=== PATIENT | female | born 1970 | race Caucasian/White ===

== ENCOUNTER 2016-11-02 09:07 | Emergency (ER) ==
[2016-11-02 09:12] VITALS: BP 118/81; TEMP 98.9; BMI 45.6
--- NOTE | 2016-11-02 09:38 | ED.PDOC ---
General ED Provider: Dr. SHA CARMEN JR Chief Complaint: Back Pain Stated Complaint: tuesday was doing a lot of sweeping and bending and lifting. tuesday started hurting some and then got worse tuesday. pain radiating down back of right leg [ End ]since tuesday 98.9 128 20 95% 118/81 10 norco neurontin. right lumbar right paraspinouts lumbar pain Time Seen by Physician: 09:33 Mode of Arrival: Walk-In Information Source: Patient Exam Limitations: No limitations Primary Care Provider: GRACY CABRERA Nursing and Triage Documentation Reviewed and Agree: No Review of Systems - Review Of Systems Constitutional: Reports: No symptoms Eyes: Reports: No symptoms Ears, Nose, Mouth, Throat: Reports: No symptoms Respiratory: Reports: No symptoms Cardiac: Reports: No symptoms GI: Reports: No symptoms : Reports: No symptoms Musculoskeletal: Reports: Back pain, Muscle pain Skin: Reports: No symptoms Neurological: Reports: Tingling Endocrine: Reports: No symptoms Hematologic/Lymphatic: Reports: No symptoms All Other Systems: Other Past Medical History - Past Medical History Endocrine: Reports: None Cardiovascular: Reports: None Respiratory: Reports: None Hematological: Reports: None Gastrointestinal: Reports: None Genitourinary: Reports: None Neuro/Psych: Reports: Migraine, Anxiety, Depression Musculoskeletal: Reports: None Cancer: Reports: None Last Menstrual Period: September 2016 Other Pertinent Past Medical History: Obesity, pt is pain management - Surgical History General Surgical History: Reports: Cholecystectomy, Back Surgery, Other ( ablation ). Denies: Hysterectomy (ablation, essure) - Family History Family History: Reports: None - Social History Smoking Status: Never smoker Hx Substance Use: No Alcohol Screening: Occasionally Physical Exam - Physical Exam Appearance: Well-appearing, Obese Pain Distress: Moderate Neck: Supple Respiratory: Airway patent Musculoskeletal: Normal strength, ROM intact, No edema, No calf tenderness ( back tendernesss) Skin: Warm (no lesions), Dry, Normal color Neurological: Sensation intact, Motor intact, Reflexes intact, Cranial nerves intact, Alert, Oriented Psychiatric: Affect appropriate, Mood appropriate Interpretation - Radiology Interpretation Radiology Interpretation By: Radiologist Exam Interpreted: CT Scan (severe l5s1 discease) Critical Care Note - Critical Care Note Total Time (mins): 0 Course - Course Orders, Labs, Meds: Orders Category Date Time Status Ketorolac Tromethamine [Toradol] MEDS 11/02/16 09:47 Discontinued 60 mg IM ONCE STA Orphenadrine Citrate [Norflex] MEDS 11/02/16 09:47 Discontinued 60 mg IM ONCE STA CT LUMBAR SPINE W/O CONTRAST Stat RADS 11/02/16 09:32 Completed Medications Discontinued Medications Generic Name Dose Route Start Last Admin Trade Name Freq PRN Reason Stop Dose Admin Ketorolac Tromethamine 60 mg 11/02/16 09:47 11/02/16 10:03 Toradol IM 11/02/16 09:48 60 mg ONCE STA Administration Orphenadrine Citrate 60 mg 11/02/16 09:47 11/02/16 10:05 Norflex IM 11/02/16 09:48 60 mg ONCE STA Administration Vital Signs: Temp Pulse Resp BP Pulse Ox 11/02/16 09:08 98.9 F 128 H 20 118/81 95 Departure - Departure Time of Disposition: 10:35 Disposition: HOME SELF-CARE Discharge Problem: Disc displacement, lumbar Instructions: Lumbar Disc Herniation (ED) Condition: Fair Pt referred to PMD for follow-up: Yes Additional Instructions: Naprosyn for pain may continue home medication discuss MRI with PMD call PMD today to schedule follow up Prescriptions: Naproxen [Naprosyn] 500 mg PO Q12HR PRN #30 tablet PRN Reason: PAIN Allergies/Adverse Reactions: Allergies sulfamethoxazole [From Bactrim] Adverse Reaction (Verified 11/02/16 09:12) trimethoprim [From Bactrim] Adverse Reaction (Verified 11/02/16 09:12) venom-honey bee [bee venom (honey bee)] Adverse Reaction (Verified 11/02/16 09: 12) Home Medications: Ambulatory Orders Ascorbate Calcium [Vitamin C] 500 mg PO DAILY 11/14/13 B Complex with Vitamin C [Super B Complex with C] 1 cap PO DAILY 11/14/13 Bupropion HCl [Wellbutrin] 200 mg PO BID 11/14/13 Cholecalciferol (Vitamin D3) [Vitamin D] 2,000 unit PO TID 11/14/13 Hydrocodone Bit/Acetaminophen [[place] 7.5-325] 1 tab PO TID 11/14/13 Multivitamin [Multi Vitamin Daily] 1 tab PO DAILY 11/14/13 Citalopram Hydrobromide [Celexa] 20 mg PO BEDTIME #30 06/10/16 Clonazepam [Klonopin] 0.5 mg PO TID #90 06/10/16 Magnesium Oxide [Magnesium] 500 mg PO BID 11/02/16 Naproxen [Naprosyn] 500 mg PO Q12HR PRN #30 tablet 11/02/16
[2016-11-02] MEDS ORDERED: NORFLEX IM STA (09:47)
[2016-11-02] MEDS ORDERED: TORADOL IM STA (09:47)
--- NOTE | 2016-11-02 10:22 | CT ---
EXAM: CT lumbar spine without contrast. HISTORY: Right sciatica. COMPARISON: Radiograph 05/31/2016. TECHNIQUE: Multiple axial images of the lumbar spine were obtained without intravenous contrast. I mages were reformatted in the sagittal and coronal planes. FINDINGS: Curvature and alignment are normal. Vertebral body heights are maintained without fractu re. There is moderate to severe loss of disc height at L4-5. There is mild loss of disc height at L5-S1. Disc heights are otherwise normal. Paravertebral soft tissues without acute abnormality. T12-L1: No neural compromise. Mild facet arthropathy. L1-2: No neural compromise. Mild facet arthropathy. L2-3: No neural compromise. Mild facet arthropathy. L3-4: Broad-based disc bulge and facet arthropathy with mild right and minimal left neural foramina l narrowing. L4-5: Disc osteophyte formation and facet arthropathy with flattening of the ventral thecal sac and moderate neural foraminal narrowing. L5-S1: Disc osteophyte formation and facet arthropathy with severe bilateral neural foraminal narro wing. Incidental note made of left nephrolithiasis. IMPRESSION: Degenerative changes as described, greatest in the lower lumbar spine.
== END 2016-11-02 10:55 | disposition home or self-care (01) ==
LOC: ED 09:07
DX: M51.26 Other intervertebral disc displacement, lumbar region (principal)
CPT/HCPCS: 96372; 99282

== ENCOUNTER 2017-09-19 17:03 | Emergency (ER) ==
[2017-09-19 17:06] VITALS: BP 151/89; TEMP 99.2; BMI 46.6
--- NOTE | 2017-09-19 17:24 | ED.PDOC ---
General ED Provider: Dr. BASIL VÁSQUEZ Chief Complaint: Cough Stated Complaint: cough Time Seen by Physician: 17:00 Mode of Arrival: Walk-In Information Source: Patient Exam Limitations: No limitations Primary Care Provider: GRACY CABRERA Nursing and Triage Documentation Reviewed and Agree: Yes Reviewed sepsis parameters & appropriate labs ordered?: Yes System Inflammatory Response Syndrome: Not Applicable Sepsis Protocol: For patient's 13 years and over: Temp is 96.8 and below OR 101 and greater Pulse >90 BPM Resp >20/minute Acutely Altered Mental Status Are patient's symptoms suggestive of a new infection, such as: -Pneumonia -Skin, Soft Tissue -Endocarditis -UTI -Bone, Joint Infection -Implantable Device -Acute Abdominal Infection -Wound Infection -Meningitis -Blood Stream Catheter Infection -Unknown System Inflammatory Response Syndrome: Not Applicable Respiratory Complaint Exam - Respiratory Complaint/Exam Onset/Duration: 3 days Symptoms Are: Still present Timing: Intermittent Initial Severity: Moderate Current Severity: Mild Location: Nose, Throat, Chest Character: Reports: Non-productive cough Aggravating: Reports: None Alleviating: Reports: Spontaneous resolution Associated Signs and Symptoms: Reports: URI, Nasal congestion Related History: Reports: Similar episode History of Healthcare-Acquired Pneumonia: No Related Surgical History: Reports: None Pulmonary Embolism Risk Factors: None Cardiac Risk Factors: Reports: None Pseudomonas Risk Factors: Reports: None Tuberculosis Risk Factors: Reports: None Status Asthmaticus Risk Factors: Reports: None Home Oxygen Use: No Recent Stress Test: No Recent Echo/LV Function: No Current Antibiotic Use: No Current Asthma Medication Use: No Respiratory Distress: None Inadequate Respiratory Effort: No Dysphagia Present: No Stridor Present: No JVD Present: No Accessory Muscle Use: No Retractions: Not Present Diminished Breath Sounds: No Sinus Tenderness: None Grunting Respirations: No Kussmaul Respirations: No Differential Diagnoses: Pneumonia, Bronchitis Review of Systems - Review Of Systems Constitutional: Reports: No symptoms Eyes: Reports: No symptoms Ears, Nose, Mouth, Throat: Reports: No symptoms Respiratory: Reports: Cough Cardiac: Reports: No symptoms GI: Reports: No symptoms : Reports: No symptoms Musculoskeletal: Reports: No symptoms Skin: Reports: No symptoms Neurological: Reports: No symptoms Endocrine: Reports: No symptoms Hematologic/Lymphatic: Reports: No symptoms All Other Systems: Reviewed and Negative Past Medical History - Past Medical History Endocrine: Reports: None Cardiovascular: Reports: None Respiratory: Reports: None Hematological: Reports: None Gastrointestinal: Reports: None Genitourinary: Reports: None Neuro/Psych: Reports: Migraine, Anxiety, Depression Musculoskeletal: Reports: None Cancer: Reports: None Last Menstrual Period: NONE Other Pertinent Past Medical History: Obesity, pt is pain management - Surgical History General Surgical History: Reports: Cholecystectomy, Back Surgery, Other ( ablation ). Denies: Hysterectomy (ablation, essure) - Family History Family History: Reports: None - Social History Smoking Status: Never smoker Hx Substance Use: No Alcohol Screening: Occasionally Physical Exam - Physical Exam Appearance: Well-appearing, No pain distress, Well-nourished Eyes: GOGO, EOMI, Conjunctiva clear ENT: Ears normal, Nose normal, Oropharynx normal Respiratory: Airway patent, Breath sounds clear, Breath sounds equal, Respirations nonlabored Cardiovascular: RRR, Pulses normal, No rub, No murmur GI/: Soft, Nontender, No masses, Bowel sounds normal, No Organomegaly Musculoskeletal: Normal strength, ROM intact, No edema, No calf tenderness Skin: Warm, Dry, Normal color Neurological: Sensation intact, Motor intact, Reflexes intact, Cranial nerves intact, Alert, Oriented Psychiatric: Affect appropriate, Mood appropriate Interpretation - Radiology Interpretation Radiology Results: Negative Exam Interpreted: CXR Critical Care Note - Critical Care Note Total Time (mins): 0 Course - Course Orders, Labs, Meds: Orders Category Date Time Status CHEST, 2 VIEWS PA & LAT Stat RADS 09/19/17 17:13 Ordered Vital Signs: Temp Pulse Resp BP Pulse Ox 09/19/17 17:03 99.2 F 109 H 20 151/89 H 97 Departure - Departure Time of Disposition: 18:00 Disposition: HOME SELF-CARE Discharge Problem: Cough, Bronchitis Instructions: Bronchospasm (ED), Acute Bronchitis (ED) Condition: Good Pt referred to PMD for follow-up: Yes IPMP verified?: No Additional Instructions: Please call your Family Physician as soon as possible to schedule a follow-up appointment. Allergies/Adverse Reactions: Allergies sulfamethoxazole [From Bactrim] Adverse Reaction (Verified 09/19/17 17:07) trimethoprim [From Bactrim] Adverse Reaction (Verified 09/19/17 17:07) venom-honey bee [bee venom (honey bee)] Adverse Reaction (Verified 09/19/17 17: 07) Home Medications: Ambulatory Orders Ascorbate Calcium [Vitamin C] 500 mg PO DAILY 05/21/14 B Complex with Vitamin C [Super B Complex with C] 1 cap PO DAILY 11/14/13 Bupropion HCl [Wellbutrin] 200 mg PO BID 11/14/13 Cholecalciferol (Vitamin D3) [Vitamin D] 2,000 unit PO TID 11/14/13 Hydrocodone Bit/Acetaminophen [[place] 7.5-325] 1 tab PO TID 11/14/13 Multivitamin [Multi Vitamin Daily] 1 tab PO DAILY 11/14/13 Citalopram Hydrobromide [Celexa] 20 mg PO BEDTIME #30 06/10/16 Clonazepam [Klonopin] 0.5 mg PO TID #90 06/10/16 Magnesium Oxide [Magnesium] 500 mg PO BID 11/02/16 Naproxen [Naprosyn] 500 mg PO Q12HR PRN #30 tablet 11/02/16 Disposition Discussed With: Patient
[2017-09-19] MEDS ORDERED: DECADRON 4 MG/ML SDV IM STA (17:25)
--- NOTE | 2017-09-19 18:43 | DI ---
EXAM: PA and lateral views of the chest HISTORY: Cough COMPARISON: None FINDINGS: Lungs are clear with no lobar consolidation, failure, large effusion or significant atelec tasis. There is old granulomatous disease. Cardiac and mediastinal silhouettes show no acute abnormal ity. No acute osseous or soft tissue abnormalities. IMPRESSION: No active disease.
== END 2017-09-19 17:52 | disposition home or self-care (01) ==
LOC: ED 17:03
DX: J20.9 Acute bronchitis, unspecified (principal)
CPT/HCPCS: 96372; 99283

== ENCOUNTER 2018-04-14 16:51 | Emergency (ER) | payer OTHER ==
[2018-04-14 17:01] VITALS: BP 140/80; TEMP 99; BMI 47.6
--- NOTE | 2018-04-14 18:01 | DI ---
EXAM: Three views of the right hand. HISTORY: Pain. FINDINGS: The bones are intact with no evidence of fracture. The joint spaces are maintained. No so ft tissue abnormality. Impression: Negative right hand.
--- NOTE | 2018-04-14 18:03 | DI ---
EXAM: Three views of the right wrist. HISTORY: Pain. FINDINGS: The bones are intact with no evidence of fracture. The joint spaces are maintained. No so ft tissue abnormality. Impression: Negative right wrist.
--- NOTE | 2018-04-14 18:26 | ED.PDOC ---
General ED Provider: Dr. BASIL VÁSQUEZ Chief Complaint: Wrist Pain/Injury Stated Complaint: WRIST AND AHND PAIN RIGHT SIDED NO INJURY Time Seen by Physician: 17:00 (DENIED INJURY SEEN WITH BRENDAN AT ALL TIMES ) Mode of Arrival: Walk-In Information Source: Patient Exam Limitations: No limitations Primary Care Provider: GRACY CABRERA Nursing and Triage Documentation Reviewed and Agree: Yes Does patient meet sepsis criteria?: No System Inflammatory Response Syndrome: Not Applicable Sepsis Protocol: For patient's 13 years and over: Temp is 96.8 and below OR 101 and greater Pulse >90 BPM Resp >20/minute Acutely Altered Mental Status Are patient's symptoms suggestive of a new infection, such as: -Pneumonia -Skin, Soft Tissue -Endocarditis -UTI -Bone, Joint Infection -Implantable Device -Acute Abdominal Infection -Wound Infection -Meningitis -Blood Stream Catheter Infection -Unknown Musculoskeletal Complaint Exam - Hand/Wrist Complaint/Exam Location of Pain: Reports: Right Mechanism of Injury: Reports: No known trauma Onset/Duration: 1 WEEK Symptoms Are: Still present Onset of Pain: Reports: Seconds Initial Severity: Moderate Current Severity: Mild Location: Reports: Discrete Character: Reports: Aching Alleviating: Reports: Rest Aggravating: Reports: None Associated Signs and Symptoms: Denies: Swelling, Redness, Bruising, Fever, Weakness, Numbness, Tingling Related History: Reports: Similar episode Dominant Hand: Right Related Surgical History: Reports: None Hand/Wrist Findings: Absent: Swelling, Ecchymosis, Abnormal contour, Rotation, Ligamentous instability, Tinel's Sign, Phalen's Sign, Laceration Tenderness: Present: Ulna, Snuff box Compartment Syndrome Risk Factors: Present: Pain Differential Diagnoses: Closed Fracture Review of Systems - Review Of Systems Constitutional: Reports: No symptoms Eyes: Reports: No symptoms Ears, Nose, Mouth, Throat: Reports: No symptoms Respiratory: Reports: No symptoms Cardiac: Reports: No symptoms GI: Reports: No symptoms : Reports: No symptoms Musculoskeletal: Reports: No symptoms Skin: Reports: No symptoms Neurological: Reports: No symptoms Endocrine: Reports: No symptoms Hematologic/Lymphatic: Reports: No symptoms All Other Systems: Reviewed and Negative Past Medical History - Past Medical History Endocrine: Reports: None Cardiovascular: Reports: None Respiratory: Reports: None Hematological: Reports: None Gastrointestinal: Reports: None Genitourinary: Reports: None Neuro/Psych: Reports: Migraine, Anxiety, Depression Musculoskeletal: Reports: None Cancer: Reports: None Last Menstrual Period: hysterectomy Other Pertinent Past Medical History: Obesity, pt is pain management - Surgical History General Surgical History: Reports: Cholecystectomy, Back Surgery, Other ( ablation ). Denies: Hysterectomy (ablation, essure) - Family History Family History: Reports: None - Social History Smoking Status: Never smoker Hx Substance Use: No Alcohol Screening: Occasionally Physical Exam - Physical Exam Appearance: Well-appearing, No pain distress, Well-nourished Eyes: GOGO, EOMI, Conjunctiva clear ENT: Ears normal, Nose normal, Oropharynx normal Respiratory: Airway patent, Breath sounds clear, Breath sounds equal, Respirations nonlabored Cardiovascular: RRR, Pulses normal, No rub, No murmur GI/: Soft, Nontender, No masses, Bowel sounds normal, No Organomegaly Musculoskeletal: Normal strength, ROM intact, No edema, No calf tenderness Skin: Warm, Dry, Normal color Neurological: Sensation intact, Motor intact, Reflexes intact, Cranial nerves intact, Alert, Oriented Psychiatric: Affect appropriate, Mood appropriate Interpretation - Radiology Interpretation Radiology Interpretation By: Radiologist Radiology Results: No acute changes Critical Care Note - Critical Care Note Total Time (mins): 0 Course - Course Orders, Labs, Meds: Orders Category Date Time Status HAND, RIGHT 3 VIEWS Stat RADS 04/14/18 17:38 Completed WRIST, RIGHT 3 VIEWS Stat RADS 04/14/18 17:38 Completed Vital Signs: Temp Pulse Resp BP Pulse Ox 04/14/18 16:51 99.0 F 106 H 20 140/80 97 Departure - Departure Time of Disposition: 18:26 (PLACED ON THUMB SPICA SPLINT AND TOLD HER TO HAVE FILMS REDONE ) Disposition: HOME SELF-CARE Discharge Problem: Wrist pain, right Instructions: Arthralgia (ED) Condition: Good Pt referred to PMD for follow-up: Yes IPMP verified?: No Additional Instructions: Please call your Family Physician as soon as possible to schedule a follow-up appointment.THE SAME FILMS MUST BE REDONE IN 1 WEEK DISCUSSED Allergies/Adverse Reactions: Allergies sulfamethoxazole [From Bactrim] Adverse Reaction (Verified 09/19/17 17:07) trimethoprim [From Bactrim] Adverse Reaction (Verified 09/19/17 17:07) venom-honey bee [bee venom (honey bee)] Adverse Reaction (Verified 09/19/17 17: 07) Home Medications: Ambulatory Orders B Complex with Vitamin C [Super B Complex with C] 1 cap PO DAILY 11/14/13 Bupropion HCl [Wellbutrin] 200 mg PO BID 11/14/13 Cholecalciferol (Vitamin D3) [Vitamin D] 2,000 unit PO TID 11/14/13 Hydrocodone Bit/Acetaminophen [[place] 7.5-325] 1 tab PO TID 11/14/13 Multivitamin [Multi Vitamin Daily] 1 tab PO DAILY 11/14/13 Citalopram Hydrobromide [Celexa] 20 mg PO BEDTIME #30 06/10/16 Clonazepam [Klonopin] 0.5 mg PO TID #90 06/10/16 Magnesium Oxide [Magnesium] 500 mg PO BID 11/02/16 Naproxen [Naprosyn] 500 mg PO Q12HR PRN #30 tablet 11/02/16 Disposition Discussed With: Patient
== END 2018-04-14 18:34 | disposition home or self-care (01) ==
LOC: ED 16:51
DX: M25.531 Pain in right wrist (principal); M79.641 Pain in right hand
CPT/HCPCS: 99282